=== PATIENT | male | born 1990 | race Caucasian/White ===

== ENCOUNTER 2025-01-14 14:23 | Emergency (ER) | payer OTHER, SELFPAY ==
--- NOTE | 2025-01-14 14:24 | ED.LOWEXIN ---
HPI - Extremity Injury (Lower) General Chief Complaint: Extremity Injury, Lower Stated Complaint: Injured R Foot Time Seen by Provider: 01/14/25 14:24 Source: patient Mode of arrival: ambulatory Limitations: no limitations History of Present Illness HPI Narrative: Jeffrey is a 34-year-old male patient presenting to the clinic today with complaints of a right foot injury/swelling. He reports he injured his foot while at work on Sunday. States he got his foot caught under a pallet of soda and pulled his foot out. Has a open wound to the top of the right dorsal foot with localized redness and blisters forming near the wound. Reports the midfoot feels numb and he has tingling in his right toes. Localized swelling to the dorsal foot. Has full range of motion of the toes. Denies any fevers, chills, body aches. Was initially seen at [place] emergency room and had x-rays completed and they were negative per patient. Was not given an Francisco Javier wrap. Has been taking ibuprofen and elevating the right foot. Related Data Allergies Allergy/AdvReac Type Severity Reaction Status Date / Time No Known Allergies Allergy Verified 01/14/25 14:34 Review of Systems Review of Systems: Pertinent positives per HPI. Patient denies any fever, chills, rash, headache, visual changes, dizziness, cough, runny nose, sore throat, shortness of breath, chest pain, palpitations, nausea, vomiting, diarrhea, constipation, abdominal pain, or any urinary issues. PMFSH Comments At the time of my signature, I reviewed and agree with the nursing past medical, surgical, social, and family history. There is no relevant family history pertinent to the patient complaint. Exam Narrative: General: Well-developed, well nourished, in no apparent distress Head: Normocephalic, atraumatic. Cardio: Regular rate and rhythm, s1 and s2 normal, no murmur appreciated. Resp: Clear to auscultation bilaterally, no rhonchi, rales, wheezing or rubs. Musculoskeletal: No deformity, open wounds scabbed over with localized redness, ecchymosis, and swelling to the foot including toes, two serous filled blisters noted near the wound, denies tenderness to palpation over the midfoot states that it is numb and he is having tingling to the toes, grossly normal range of motion, muscle strength strong and equal, peripheral pulse strong, no cyanosis, normal gait and station, no hematoma, no discharge from wound. Course Course Emergency Course: Portions of this record may have been created with voice recognition software. Level of Care: Express Care Visit Vital Signs Vital signs: Vital Signs Temperature 36.0 C L 01/14/25 14:36 Pulse Rate 78 01/14/25 14:36 Respiratory Rate 18 01/14/25 14:36 Blood Pressure 165/93 H 01/14/25 14:36 Pulse Oximetry 99 01/14/25 14:36 Oxygen Delivery Room Air 01/14/25 14:36 Temperature 36.0 C L 01/14/25 14:36 Pulse Rate 78 01/14/25 14:36 Respiratory Rate 18 01/14/25 14:36 Blood Pressure 165/93 H 01/14/25 14:36 Pulse Oximetry 99 01/14/25 14:36 Oxygen Delivery Room Air 01/14/25 14:36 Vital signs reviewed MDM - Extremity Injury (Lower) MDM Narrative Medical decision making narrative: At the time of visit patient is resting comfortably on the exam table. Patient appears to be nontoxic. Offered to repeat foot x-ray and patient declined at this time. Labs: Nonfasting blood sugar was 112 in the clinic today Plan: I suspect patient has a localized skin/wound infection to the dorsal right foot. Also has two blisters swelling to the dorsal foot including the toes with old ecchymosis, no palpable hematoma, pedal pulses palpable, will place patient on clindamycin to cover infection. Supportive measures were discussed with the patient and they voiced understanding discharge instructions and agrees to treatment plan. Return precautions reviewed. Signs and symptoms of compartment syndrome was reviewed with the patient- he voiced understanding if he develops these symptoms he needs to go the emergency room.. Differential Diagnosis Differential diagnosis: Likely fracture of toe and other (Foot fracture, infected wound, ecchymosis, joint swelling, compartment syndrome) Lab Data Labs: Lab Results 01/14/25 Range/Units 14:46 POC Capillary Glucose 112 H (65-105) mg/dl Discharge Plan Discharge Clinical Impression: Localized swelling of right foot, Wound infection Blister of foot Qualifiers: Encounter type: initial encounter Laterality: right Qualified Code(s): S90.821A - Blister (nonthermal), right foot, initial encounter Contusion of foot Qualifiers: Encounter type: initial encounter Laterality: right Qualified Code(s): S90.31XA - Contusion of right foot, initial encounter Patient Disposition: Home Condition: Stable Instructions: Antibiotic Form, Wound Infection (ED), Blister (ED) Additional Instructions: Blood sugar was 112 in the clinic today. This is a normal nonfasting blood sugar Rest, ice, elevate, and wear francisco javier wrap as directed Take clindamycin as prescribed Avoid popping the blisters Tylenol/motrin for pain as discussed. Gradually bear weight Follow up with carbonizer tester in 1 week if symptoms persist. Follow-up with primary care doctor in 3 days for wound check Signs and symptoms of compartment syndrome was reviewed with the patient and if his symptoms worsen he is to go to the emergency room. Patient Language: Bulgarian Prescriptions: New clindamycin HCl [Cleocin HCl] 300 mg capsule 300 mg PO Q8H 7 Days Qty: 21 0RF Follow-up/Referrals: Jduson Brand DPM [Physician] - 2 Days (Right foot pain with localized swelling-wound infection to the top of his foot with localized redness-foot contusion with ecchymosis-reporting numbness in the foot and tingling in his toes) UNKNOWN,DOCTOR [Non-Staff] - Stand Alone Forms: Work/School Release IP Time of Disposition: 14:47 Quality NIHSS Nursing Documentation ED NIHSS nursing documentation: reviewed/agree
[2025-01-14 14:36] VITALS: BP 165/93; PULSE 78; RESP 18; TEMP 36; O2SAT 99
--- OUTSIDE RECORDS SUMMARY | 2025-01-14 14:37 | XMS_ITS | Clinical Summary ---
Author Organization [facility] Address [address] [place] [address] Care Team Providers Care Oyster Sorter Name Role Phone Unavailable Primary Care Provider Unavailabl e Source Comments [facility],non-owned Affiliates and Associated Physician Practices is amultiple site organization consisting of ambulatory clinics and hospital sitesin [place], [place], [place] and [place]. This disclosure is being madepursuant to the Care Everywhere program and may not contain all information available regarding this patient. 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 Gender Identity Not on file Sexual Orientation Not on file Plan of Treatment Health Maintenance Due Date Last Done Comments HIV SCREENING 2005 HEPATITIS C SCREENING 04/01/2008 DTAP/TDAP/TD VACCINES (1 - Tdap) 2009 HEPATITIS B VACCINE (1 of 3 - 19+ 3-dose series) 2009 COVID-19 VACCINE ( - 2023-2 5 season) 2024 DEPRESSION SCREENING 08/27/2024 INFLUENZA VACCINE (Season Ended) 2025 ZOSTER VACCINE (1 of 2) 2040 HIB VACCINE Aged Out No longer eligi ble based on patient's age to complete this topic HPV VACCINE Aged Out No longer eligi ble based on patient's age to complete this topic MENINGOCOCCAL (Group B) VACC INE SHARED DECISION-MAKING Aged Out No longer eligibl e based on patient's age to complete this topic MENINGOCOCCAL GROUPS A/C/Y/W VACCINE Aged Out No longer eligible b ased on patient's age to complete this topic PNEUMOCOCCAL VACCINE Aged Out No long er eligible based on patient's age to complete this topic
[2025-01-14 14:48] LABS: Glucose Point of Care 112 mg/dl (65-105)
== END 2025-01-14 14:53 | disposition home or self-care (01) ==
PROVIDERS: Emergency Provider Nurse Practitioner Family
DX: S91.301A Unspecified open wound, right foot, initial encounter (principal); L08.9 Local infection of the skin and subcutaneous tissue, unspecified; W23.1XXA Caught, crushed, jammed, or pinched between stationary objects, initial encounter; Y99.0 Civilian activity done for income or pay; S90.821A Blister (nonthermal), right foot, initial encounter; S90.31XA Contusion of right foot, initial encounter; R22.41 Localized swelling, mass and lump, right lower limb
CPT/HCPCS: 82948; 99203; G0463